=== PATIENT | male | born 1980 | race Hispanic/Latino ===

== ENCOUNTER 2024-07-13 06:16 | Day surgery (SDC) | payer OTHER, SELFPAY ==
[2024-07-13 08:48] LABS: Glucose - Point of Care 120 mg/dl (70-99)
== END 2024-07-13 10:09 | disposition home or self-care (01) ==
LOC: GI 06:16
PROVIDERS: ATTENDING PHYSICIAN Internal Medicine Gastroenterology; FAMILY PHYSICIAN Student in an Organized Health Care Education/Training Program
DX: Z12.11 Encounter for screening for malignant neoplasm of colon (principal); K64.8 Other hemorrhoids
CPT/HCPCS: G0121; 82962